=== PATIENT | female | born 2000 | race Two or more races ===

== ENCOUNTER 2019-01-30 11:40 | Emergency (ER) | payer OTHER, MEDICAID ==
[~2019-01-30] VITALS: Ht 165.1 cm; Wt 55.0 kg
[2019-01-30] MEDS ORDERED: SODIUM CHLORIDE 0.9% 1,000 ML IV ONE (12:59)
[2019-01-30] MEDS ORDERED: BACITRACIN ZINC OINT UDPKT TOP ONE (13:00)
[2019-01-30] MEDS ORDERED: LIDOCAINE 1%/EPI 1:100,000 10 ML VIAL IJ ONE (13:00)
[2019-01-30] MEDS ORDERED: TETANUS, DIPHTHERIA, PERTUSSIS VAC/PF 0.5ML (>7YR OLD) IM ONE (13:00)
[2019-01-30 13:34] LABS: HEMATOCRIT. 34.4 % (36.0-48.0); HEMOGLOBIN. 11.1 g/dL (12.0-16.0); MEAN CORPUSCULAR HEMOGLOBIN 27.3 pg (28.0-32.0); MEAN CORPUSCULAR VOLUME 84.9 fL (81.0-99.0); MEAN PLATELET VOLUME 9.4 fl (7.4-10.4); PLATELET 221 x1000/uL (130-400); RED BLOOD CELL COUNT 4.05 mill/uL (4.2-5.4); RED CELL DISTRIBUTION WIDTH 15.8 % (11.6-14.6)
[2019-01-30 13:40] LABS: CHLORIDE 109 mEq/L (98-107); INR 1.1; PARTIAL THROMBOPLASTIN TIME 25.4 sec (23.4-31.0); PROTHROMBIN TIME 11.4 sec (9.6-11.0)
[2019-01-30 13:43] LABS: HCG SCREEN NEGATIVE
[2019-01-30 13:45] LABS: CLARITY URINE CLOUDY (CLEAR); COLOR URINE YELLOW (YELLOW); KETONES URINE 1+ (NEGATIVE); LEUKOCYTE ESTERASE URINE 2+ (NEGATIVE); NITRITE URINE NEGATIVE (NEGATIVE); OCCULT BLOOD URINE 1+ (NEGATIVE); PH URINE 5.5 (4.5-8.0); PROTEIN URINE 1+ (NEGATIVE); SPECIFIC GRAVITY URINE 1.027 (1.005-1.030)
[2019-01-30] MEDS ORDERED: LIDOCAINE HCL/EPINEPHRINE 1%-EPI 1:100,000 20 ML VIAL INFIL ONE (13:45)
[2019-01-30 13:51] LABS: PLATELET ESTIMATE NORMAL
[2019-01-30] MEDS ORDERED: CEFTRIAXONE 1 G PREMIX 50 ML IV ONE (15:00)
[2019-01-30] MEDS ORDERED: ACETAMINOPHEN 500MG TABLET PO ONE (15:15)
[2019-01-30 17:00] VITALS: BP 107/72
== END 2019-01-30 17:20 | disposition home or self-care (01) ==
LOC: ER 11:40
DX: S81.012A Laceration without foreign body, left knee, initial encounter (principal); S30.0XXA Contusion of lower back and pelvis, initial encounter; S00.83XA Contusion of other part of head, initial encounter; F12.10 Cannabis abuse, uncomplicated; N39.0 Urinary tract infection, site not specified; Z98.890 Other specified postprocedural states; V49.88XA Car occupant (driver) (passenger) injured in other specified transport accidents, initial encounter; Y93.89 Activity, other specified; Y92.488 Other paved roadways as the place of occurrence of the external cause
CPT/HCPCS: 12001; 36415; 70450; 71045; 72128; 72131; 72170; 73564; 80053; 81003; 81025; 83690; 84703; 85025; 85610; 85730; 86850; 86900; 86901; 87086; 90471; 90715; 96374; 99284; J0696; J3490; J7030; Z7610

== ENCOUNTER 2019-02-08 06:25 | Emergency (ER) | payer OTHER, MEDICAID ==
[~2019-02-08] VITALS: Ht 165.1 cm; Wt 43.0 kg
[2019-02-08 06:33] VITALS: BP 100/57
[2019-02-08] MEDS ORDERED: BACITRACIN ZINC OINT UDPKT TOP ONE (09:00)
== END 2019-02-08 09:20 | disposition home or self-care (01) ==
LOC: ER 06:54
DX: S81.012D Laceration without foreign body, left knee, subsequent encounter (principal); L03.116 Cellulitis of left lower limb; F12.10 Cannabis abuse, uncomplicated; Z89.622 Acquired absence of left hip joint; X58.XXXD Exposure to other specified factors, subsequent encounter
CPT/HCPCS: 99283

== ENCOUNTER 2019-03-21 13:51 | Emergency (ER) | payer OTHER, MEDICAID ==
[~2019-03-21] VITALS: Ht 162.6 cm; Wt 43.0 kg
[2019-03-21] MEDS ORDERED: IBUPROFEN 400MG TABLET PO ONE (15:15)
[2019-03-21 15:35] LABS: CLARITY URINE CLOUDY (CLEAR); COLOR URINE YELLOW (YELLOW); KETONES URINE TRACE (NEGATIVE); LEUKOCYTE ESTERASE URINE 1+ (NEGATIVE); NITRITE URINE NEGATIVE (NEGATIVE); OCCULT BLOOD URINE 2+ (NEGATIVE); PH URINE 6.5 (4.5-8.0); PROTEIN URINE TRACE (NEGATIVE); SPECIFIC GRAVITY URINE 1.029 (1.005-1.030)
[2019-03-21] MEDS ORDERED: METRONIDAZOLE 500MG TABLET PO ONE (18:15)
[2019-03-21 18:30] VITALS: BP 115/80
[2019-03-26 17:15] LABS: CHLAMYDIA TRACHOMATIS NAA Negative (Negative); NEISSERIA GONORRHOEAE NAA Negative (Negative)
== END 2019-03-21 18:30 | disposition home or self-care (01) ==
LOC: ER 13:51
DX: R10.2 Pelvic and perineal pain (principal); N39.0 Urinary tract infection, site not specified; B37.3 Candidiasis of vulva and vagina; N76.0 Acute vaginitis; R19.00 Intra-abdominal and pelvic swelling, mass and lump, unspecified site; Z97.5 Presence of (intrauterine) contraceptive device
CPT/HCPCS: 76830; 76856; 81003; 81025; 87106; 87210; 87491; 87591; 99284

== ENCOUNTER 2019-03-26 16:52 | Emergency (ER) | payer OTHER, MEDICAID ==
[~2019-03-26] VITALS: Ht 165.1 cm; Wt 45.0 kg
[2019-03-26] MEDS ORDERED: IBUPROFEN 600MG TABLET PO ONE (19:15)
[2019-03-26 19:46] LABS: BASOPHILS % 0.5 % (0.0-2.0); HEMATOCRIT. 34.6 % (36.0-48.0); HEMOGLOBIN. 11.4 g/dL (12.0-16.0); LYMPHOCYTES % 8.4 % (20.0-50.0); MEAN CORPUSCULAR HEMOGLOBIN 27.9 pg (28.0-32.0); MEAN PLATELET VOLUME 8.6 fl (7.4-10.4); NEUTROPHILS % 88.1 % (40.0-76.0); PLATELET 239 x1000/uL (130-400); RED BLOOD CELL COUNT 4.07 mill/uL (4.2-5.4); RED CELL DISTRIBUTION WIDTH 15.3 % (11.6-14.6)
[2019-03-26 19:49] LABS: CHLORIDE 111 mEq/L (98-107)
[2019-03-26 19:52] LABS: HCG SCREEN NEGATIVE
[2019-03-26 22:34] VITALS: BP 107/66
== END 2019-03-26 22:47 | disposition home or self-care (01) ==
LOC: ER 16:52
DX: S00.12XA Contusion of left eyelid and periocular area, initial encounter (principal); S00.11XA Contusion of right eyelid and periocular area, initial encounter; R51 Headache; M54.9 Dorsalgia, unspecified; F12.10 Cannabis abuse, uncomplicated; Y04.0XXA Assault by unarmed brawl or fight, initial encounter; Y93.89 Activity, other specified; Y92.89 Other specified places as the place of occurrence of the external cause; Y99.8 Other external cause status
CPT/HCPCS: 36415; 70480; 81025; 84703; 99284